=== PATIENT | female | born 1995 | race African-American/Black ===

== ENCOUNTER 2017-12-18 19:46 | Emergency (ER) | payer SELFPAY | END 2017-12-19 01:00 | disposition left against medical advice (07) | LOC: ER 19:46 | DX: M79.602 Pain in left arm (principal); Z53.21 Procedure and treatment not carried out due to patient leaving prior to being seen by health care provider ==

== ENCOUNTER 2023-08-07 02:55 | Emergency (ER) | payer MEDICAID, MEDICARE ==
[~2023-08-07] VITALS: Ht 167.6 cm; Wt 89.0 kg
[2023-08-07 03:01] VITALS: O2SAT 100
[2023-08-07] MEDS ORDERED: MECLIZINE 25MG TABLET PO ONE (07:15)
[2023-08-07] MEDS ORDERED: MECL-115 PO (09:35)
[2023-08-07 10:20] VITALS: BP 132/84; PULSE 83; RESP 16; TEMP 98.6
== END 2023-08-07 10:25 | disposition home or self-care (01) ==
LOC: ER 02:56
DX: R42 Dizziness and giddiness (principal)
CPT/HCPCS: 99283; 81025; J8597

== ENCOUNTER 2023-08-08 04:32 | Emergency (ER) | payer MEDICAID ==
[~2023-08-08] VITALS: Ht 170.2 cm; Wt 73.0 kg
[~2023-08-08 04:32] MED LIST: MECL-115 PO
[2023-08-08 04:34] VITALS: O2SAT 98
[2023-08-08] MEDS ORDERED: DIAZEPAM 2 MG TABLET PO ONE (08:30)
[2023-08-08 12:36] VITALS: BP 119/83; PULSE 73; RESP 19; TEMP 98.4
== END 2023-08-08 12:37 | disposition home or self-care (01) ==
LOC: ER 05:17
DX: R42 Dizziness and giddiness (principal); F12.10 Cannabis abuse, uncomplicated
CPT/HCPCS: 81025; 99284